=== PATIENT | male | born 1965 | race Caucasian/White ===

== ENCOUNTER 2018-10-01 09:05 | Emergency (ER) | payer BC ==
[~2018-10-01] VITALS: Ht 162.6 cm; Wt 70.3 kg
[2018-10-01] MEDS ORDERED: COZAAR 25 MG TA25 M1 PO (09:08)
[2018-10-01 09:29] LABS: ABSOLUTE NEUTROPHILS 4.7 thou/uL (1.4-8.2); BASOPHILS 0.6 % (0.0-2.0); EOSINOPHILS 2.3 % (0.0-3.0); HEMATOCRIT 46.4 % (42.0-52.0); LYMPHOCYTES 30.9 % (24.0-44.0); MCH 30.2 pg (26.0-34.0); MCHC 34.6 g/dL (28.0-37.0); MCV 87.2 fL (80.0-100.0); MONOCYTES 8.7 % (1.0-8.0); PLATELET COUNT 241 thou/uL (150-400); POLYS 57.5 % (36.0-66.0); RBC 5.32 mil/uL (4.50-6.00); RDW 13.9 % (10.5-14.5); WBC 8.3 thou/uL (4.0-11.0)
[2018-10-01 09:36] LABS: CALCIUM 9.2 mg/dL (8.5-10.1); CREATININE 0.8 mg/dL (0.7-1.3); POTASSIUM 4.3 mmol/L (3.5-5.1)
[2018-10-01 09:42] LABS: ALBUMIN 3.7 g/dL (3.4-5.0); TOTAL BILIRUBIN 0.6 mg/dL (<0.1-1.0); TOTAL PROTEIN 8.3 g/dL (6.4-8.2)
[2018-10-01 09:58] LABS: MAGNESIUM 2.2 mg/dL (1.8-2.4); TROPONIN-I <0.06 ng/mL (<0.06)
[2018-10-01] MEDS ORDERED: VALIUM2 MG PO (11:01)
[2018-10-01] MEDS ORDERED: CLONIDINE0.1 PO (11:01)
[2018-10-01 11:05] VITALS: BP 179/112
--- NOTE | 2018-10-02 17:19 | EKG ---
[facility] [place] [employer] [place] [address] ELECTROCARDIOGRAM REPORT Name: ANEESH SMART Room #: [facility] Jimenez#: [id number] Admission: 10/01/18 Attend Phys: Discharge: 10/01/18 Date of : 69 Report #: [id number] THIS REPORT FOR: //name// [facility] ED Test Date: 2018-10-01 Test Time: 09:43:51 Pat Name: ANEESH SMART Department: Room: Gender: Electronics Manufacturer: KF : 1965 Requested By: Ron Lane Order Number: [id number] MD: Tad Germain Measurements Intervals [place] Rate: 72 P: 8 [place]: 143 QRS: 7 QRSD: 86 T: 128 QT: 379 QTc: 415 Interpretive Statements Sinus rhythm Nonspecific T wave abnormality No previous ECG available for comparison Electronically Signed On 10-02-2018 17:19:38 CDT by Tad Germain [email or web address] <ELECTRONICALLY SIGNED> By: Tad Germain MD, [facility] 10/02/18 1719 0943 0943 Tad Germain MD, FACC /EPI
== END 2018-10-01 11:10 | disposition home or self-care (01) ==
LOC: ER 09:05
PROVIDERS: Emergency Medicine
DX: H81.10 Benign paroxysmal vertigo, unspecified ear (principal); H93.19 Tinnitus, unspecified ear; I10 Essential (primary) hypertension; F17.210 Nicotine dependence, cigarettes, uncomplicated; Z79.899 Other long term (current) drug therapy